=== PATIENT | female | born 1995 | race Hispanic/Latino ===

== ENCOUNTER 2022-05-25 20:06 | Emergency (ER) | payer MEDICAID, OTHER ==
[~2022-05-25] VITALS: Ht 152.4 cm; Wt 84.4 kg
[2022-05-25 20:57] LABS: APPEARANCE,URINE CLEAR (CLEAR); BILIRUBIN,URINE NEGATIVE (NEGATIVE); COLOR,URINE COLORLESS (YELLOW); GLUCOSE, URINE (UA) NEGATIVE (NEGATIVE); KETONES,URINE NEGATIVE (NEGATIVE); LEUKOCYTE ESTERASE ,URINE 250 Leu/uL (NEGATIVE); NITRATE,URINE NEGATIVE (NEGATIVE); OCCULT BLOOD,URINE NEGATIVE (NEGATIVE); PH,URINE 7.5 (5.0-8.0); PROTEIN,URINE NEGATIVE (NEGATIVE); UROBILINOGEN,URINE 0.2 mg/dL (0.2-1.0)
[2022-05-25 21:08] LABS: BACTERIA,URINE RARE /HPF (None Seen); RBC,URINE 0-1 /HPF (0-1); SQUAMOUS EPITHELIAL CELL,UR RARE /HPF (0-2); WBC,URINE 0-1 /HPF (0-1); YEAST,URINE BUDDING FEW /HPF (None Seen)
[2022-05-25 22:07] LABS: BASOPHILS % (AUTO) 0.2 % (0.0-5.0); HEMATOCRIT 34.6 % (36-48); LYMPHOCYTES % (AUTO) 20.8 % (21.0-51.0); MEAN CORPUSCULAR HGB CONC 33.2 g/dL (32.0-36.0); MEAN CORPUSCULAR VOLUME 87.4 fL (79-99); MONOCYTES % (AUTO) 5.6 % (3.0-13.0); NEUTROPHILS % (AUTO) 70.9 % (40.0-77.0); PLATELET COUNT (AUTO) 245 K/uL (130-400); RED BLOOD CELL COUNT(AUTO) 3.96 MIL/uL (4.00-5.50); RED CELL DISTRIBUTION WIDTH 13.2 % (11.0-15.5); WHITE BLOOD COUNT (AUTO) 8.2 K/uL (4.8-10.8)
[2022-05-25 22:20] LABS: CREATININE 0.7 mg/dL (0.5-1.5); POTASSIUM 3.4 mmol/L (3.5-5.1)
[2022-05-25 22:46] LABS: ALBUMIN 3.3 g/dL (3.5-5.0); TOTAL PROTEIN, SERUM 7.1 g/dL (6.0-8.3)
[2022-05-25 22:57] VITALS: BP 115/62
== END 2022-05-25 22:58 | disposition home or self-care (01) ==
LOC: EDH 20:06
DX: O20.9 Hemorrhage in early pregnancy, unspecified (principal); Z3A.14 14 weeks gestation of pregnancy
CPT/HCPCS: 36415; 76805; 80053; 81001; 81025; 84702; 85025; 87088

== ENCOUNTER 2024-04-22 13:57 | Emergency (ER) | payer MEDICAID ==
[~2024-04-22] VITALS: Ht 152.4 cm; Wt 95.7 kg
[2024-04-22 14:57] LABS: APPEARANCE,URINE CLOUDY (CLEAR); BILIRUBIN,URINE NEGATIVE (NEGATIVE); COLOR,URINE YELLOW (YELLOW); GLUCOSE, URINE (UA) NEGATIVE (NEGATIVE); KETONES,URINE 100 mg/dL (NEGATIVE); LEUKOCYTE ESTERASE ,URINE NEGATIVE Leu/uL (NEGATIVE); NITRATE,URINE NEGATIVE (NEGATIVE); OCCULT BLOOD,URINE SMALL (NEGATIVE); PH,URINE 5.5 (5.0-8.0); PROTEIN,URINE 10 mg/dL (NEGATIVE); UROBILINOGEN,URINE 0.2 mg/dL (0.2-1.0)
--- NOTE | 2024-04-22 14:57 | ERN ---
ED Note History of Present Illness Stated Complaint: NAUSEA,MULTIPLE COMPLAINTS Chief Complaint: Abdominal Pain Time Seen by MD: 14:08 Dictation: Patient is here with nausea vomiting for the last 3-4 days with diffuse abdominal cramping no fever no chills no change in urination. She states she is sexually active without control and might be . No primary care doctor and has not taken anything prior to arrival for the pain or vomiting Allergies: Coded Allergies: No Known Drug Allergies (Unverified Allergy, Unknown, 05/25/22) Home Meds Active Scripts Ondansetron (Ondansetron Odt) 4 Mg Tab.rapdis, 4 MG PO Q6HPRN PRN for nausea, #16 TAB 0 Refills Prov:ANAMARIA MCBRIDE POULTRY FARM MANAGER 04/22/24 Past Medical History Past Medical History: No Pertinent History Surgical History: None, LMP: Mar 20, 2024 RN Note Reviewed/Agreed w/PFSH: Yes Review of System Dictation CONSTITUTIONAL: Negative except for HPI HEAD/FACE: Negative except for HPI EENT: Negative except for HPI RESPIRATORY: Negative except for HPI GASTROINTESTINAL/ABDOMINAL: Negative except for HPI diffuse abdominal cramping with nausea vomiting 3-4 days GENITOURINARY: Negative except for HPI MUSCULOSKELETAL: Negative except for HPI INTEGUMENTARY: Negative except for HPI NEUROLOGICAL/PSYCH: Negative except for HPI HEMATOLOGIC/LYMPHATIC: Negative except for HPI All Systems Negative, Except as noted above. 13 point review of systems assessed and all negative except for above. Initial Vital Sign VS Vital Signs Date Time Temp Pulse Resp B/P (MAP) Pulse Ox O2 Delivery O2 Flow Rate FiO2 04/22/24 14:13 98.1 94 16 128/91 99 Room Air 0 04/22/24 17:08 21 Physical Exam Dictation Vital Signs reviewed General Appearance: Alert, oriented x 3, moderate acute distress, well developed, nourished. Obese Head and Face: non-traumatic. Eyes: PERRL, pink conjunctivas, eyelid no trauma, anterior chamber with arcus senilis. Ears: Pinnas intact and no signs of trauma or erythema ear canals clear and no discharge TM no erythema Nose: No discharge, no bleeding. Oropharynx: Mouth normal, tongue pink, pharynx clear,no erythema, tonsils no exudates, no abscesses noted, mucous memb [place] moist Neck: Supple, non-tender, no thyromegaly, no masses, no JVD, no bruits Breast:Deferred Chest:No tenderness, no crepitus, no paradoxical movement, no retractions Lungs:Clear, well-ventilated, symmetric, no rales, no wheezing, no rhonchi, no s tridor, good breath sounds bilaterally Heart: Regular rate, regular rhythm, no murmur, no gallops Vascular: no peripheral edema, Abdomen: Soft, positive bowel sounds, nondistended, no guarding, nontender, no rebound, no masses no hepatomegaly, no splenomegaly, no Nguyen's sign, no hernias. No focal tenderness Rectal: Deferred Genital: Deferred Neurological: Normal speech, motor function intact, sensory function intact Musculoskeletal: Neck nontender, full range of motion, back nontender, full range of motion, Extremities: nontender, full range of motion Skin: Color pink, dry, no turgor, no rash, no lacerations, no abrasions, no contusions. Lymphatic: Deferred Results (Laboratory/Radiology) Laboratory/Radiology Laboratory Tests Test 04/22/24 14:28 04/22/24 15:17 Urine Color YELLOW (YELLOW) Urine Appearance CLOUDY (CLEAR) H Urine pH 5.5 (5.0-8.0) Urine Specific [place] 1.023 (1.001-1.031) Urine Protein 10 mg/dL (NEGATIVE) H Urine Glucose (UA) NEGATIVE mg/dL (NEGATIVE) Urine Ketones 100 mg/dL (NEGATIVE) H Urine Occult Blood SMALL (NEGATIVE) H Urine Nitrate NEGATIVE (NEGATIVE) Urine Bilirubin NEGATIVE mg/dL (NEGATIVE) Urine Urobilinogen 0.2 mg/dL (0.2-1.0) Urine Leukocyte Esterase NEGATIVE [place]/uL Urine RBC 0-1 /HPF (0-1) Urine WBC 2-5 /HPF (0-1) H Urine Squamous Epithelial Cells MANY /HPF (0-2) Urine Bacteria None /HPF (None Seen) Urine HCG, Qualitative POSITIVE (NEGATIVE) H White Blood Count 8.0 K/uL (4.8-10.8) Red Blood Count 4.61 MIL/uL (4.00-5.50) Hemoglobin 12.2 g/dL (12.0-16.0) Hematocrit 39.5 % (36-48) Mean Corpuscular Volume 85.7 fL (79-99) Mean Corpuscular Hemoglobin 26.5 pg (27.0-33.0) L Mean Corpuscular Hemoglobin Concent 30.9 g/dL (32.0-36.0) L Red Cell Distribution Width 14.2 % (11.0-15.5) Platelet Count 350 K/uL (130-400) Mean Platelet Volume 10.5 fL (7.5-10.5) Immature Granulocyte % (Auto) 0.5 % (0-1) Neutrophils (%) (Auto) 75.4 % (40.0-77.0) Lymphocytes (%) (Auto) 19.1 % (21.0-51.0) L Monocytes (%) (Auto) 4.1 % (3.0-13.0) Eosinophils (%) (Auto) 0.5 % (0.0-8.0) Basophils (%) (Auto) 0.4 % (0.0-5.0) Neutrophils # (Auto) 6.0 K/uL (1.8-7.7) Lymphocytes # (Auto) 1.5 K/uL (1.0-4.8) Monocytes # (Auto) 0.3 K/uL (0.1-1.0) Eosinophils # (Auto) 0.04 K/uL (0.00-0.70) Basophils # (Auto) 0.03 K/uL (0.00-0.20) Absolute Immature Granulocyte (auto 0.04 K/uL (0-1) Nucleated Red Blood Cells 0.0 % (0.0-0.19) Red Blood Cell Morphology See comments Sodium Level 137 mmol/L (136-145) Potassium Level 4.5 mmol/L (3.5-5.1) Chloride Level 100 mmol/L (101-111) L Carbon Dioxide Level 25 mmol/L (21-32) Blood Urea Nitrogen 7 mg/dL (7-18) Creatinine 0.7 mg/dL (0.5-1.0) Glomerular Filtration Rate Calc 122 mL/min (>90) Random Glucose 88 mg/dL (70-105) Total Calcium 9.5 mg/dL (8.5-10.1) Lipase 24 U/L (16-77) Serum Test, Qualitative POSITIVE (NEGATIVE) H Labs Reviewed?: Yes ED Course ED Course Orders Procedure Category Date Status Time Urinalysis Profile LAB 04/22/24 Complete 14:26 ,Urine Test LAB 04/22/24 Complete 14:26 Cbc With Differential LAB 04/22/24 Complete 14:56 Lipase LAB 04/22/24 Complete 14:56 Basic Metabolic Panel LAB 04/22/24 Complete 14:56 Ondansetron Odt 4mg PHA 04/22/24 Complete Tab (Zofran 4mg Odt) 15:00 Testing, LAB 04/22/24 Complete Serum Hcg 15:12 Us Ob <14 Weeks US 04/22/24 Resulted 15:56 Current Medications Medications (Trade) Dose Ordered Sig/Sebastián Route PRN Reason Start Time Stop Time Status Last Admin Dose Admin Ondansetron HCl (zoFRAN 4MG ODT) 4 mg ONCE ONCE SL 04/22/24 15:00 04/22/24 15:01 DC 04/22/24 17:08 Vital Signs Date Time Temp Pulse Resp B/P (MAP) Pulse Ox O2 Delivery O2 Flow Rate FiO2 04/22/24 17:08 98.1 90 16 125/89 99 Room Air* 0 21 04/22/24 14:13 98.1 94 16 128/91 99 Room Air 0 1645 workup negative patient has a positive test. Ultrasound does not demonstrate an IUP at this time however she would be approximately five weeks four days Medical Decision Making MDM Medical discharge making basic labs urinalysis and HCG Labs negative except for hCG positive Ultrasound does not demonstrate IUP at this time however likely too early no sac seen DX & DISP Disposition: Discharge Departure Impression: Primary Impression: Pelvic pain during Condition: Stable Scripts Ondansetron (Ondansetron Odt) 4 Mg Tab.rapdis 4 MG PO Q6HPRN PRN for nausea, #16 TAB 0 Refills Prov: ANAMARIA MCBRIDE P[employer]LTRY FARM MANAGER 04/22/24 Additional Instructions: Follow-up with primary care provider in 1 to 2 days. Take medications as directed here in the emergency room. Okay to continue home medications unless otherwise discussed during your visit in the emergency room today. Return to your nearest emergency room if symptoms worsen or if there is no improvement. Call 911 if you need immediate assistance. Take Tylenolas needed and if no contraindications are present. Increase oral hydration. A wound culture or urine culture was ordered here in the emergency room department please follow-up with primary care provider and advise them to get repeat ports from our facility. If you had any Oscar wrap/splints that were applied here, please do not remove them until you see your primary care or specialty. Start vitamins/[id number]-agi-[id number] today and take daily with food. Tylenol only for pain. No [id number] medications, no tobacco, no alcohol until cleared by your rice field worker doctor Referrals: SELF,REFERRAL (PCP) Time of Disposition: 16:46 I have reviewed the case, and I agree with, Diagnosis and Plan I performed the substantive portion of the visit. I have reviewed and personally made and approve the management plan that is documented in the notes by myself or the KEON. I acknowledge full responsibility for the patient's management plan. ANAMARIA MCBRIDE NP Apr 22, 2024 14:57 FLORENCIO CEVALLOS MD Apr 22, 2024 18:32
[2024-04-22 14:59] LABS: ADD UA MICROSCOPIC YES
[2024-04-22 15:01] LABS: MUCUS,URINE RARE LPF (None Seen); RBC,URINE 0-1 /HPF (0-1); SQUAMOUS EPITHELIAL CELL,UR MANY /HPF (0-2)
[2024-04-22 15:43] LABS: HCG,QUALITATIVE URINE POSITIVE (NEGATIVE)
[2024-04-22 15:51] LABS: BASOPHILS # (AUTO) 0.03 K/uL (0.00-0.20); BASOPHILS % (AUTO) 0.4 % (0.0-5.0); EOSINOPHILS # (AUTO) 0.04 K/uL (0.00-0.70); EOSINOPHILS % (AUTO) 0.5 % (0.0-8.0); HEMATOCRIT 39.5 % (36-48); IMMATURE GRANULOCYTE ABSOLUTE 0.04 K/uL (0-1); LYMPHOCYTES # (AUTO) 1.5 K/uL (1.0-4.8); LYMPHOCYTES % (AUTO) 19.1 % (21.0-51.0); MEAN CORPUSCULAR HEMOGLOBIN 26.5 pg (27.0-33.0); MEAN CORPUSCULAR HGB CONC 30.9 g/dL (32.0-36.0); MEAN CORPUSCULAR VOLUME 85.7 fL (79-99); MONOCYTES # (AUTO) 0.3 K/uL (0.1-1.0); MONOCYTES % (AUTO) 4.1 % (3.0-13.0); NEUTROPHILS % (AUTO) 75.4 % (40.0-77.0); PLATELET COUNT (AUTO) 350 K/uL (130-400); RED BLOOD CELL COUNT(AUTO) 4.61 MIL/uL (4.00-5.50); RED CELL DISTRIBUTION WIDTH 14.2 % (11.0-15.5)
[2024-04-22 15:56] LABS: CREATININE 0.7 mg/dL (0.5-1.0); POTASSIUM 4.5 mmol/L (3.5-5.1)
--- NOTE | 2024-04-22 16:46 | HMCIMG ---
Exam Type: US OB <14 WEEKS Clinical Information: Abdominal cramping with nausea and vomiting approximately five weeks pregna Comparison: None FINDINGS: There is an intrauterine gestational sac. Gestational sac diameter is 1.04 cm , corresponds to 6 w 0 d. No embryonic pole or yolk sac seen at this time. The uterus is anteverted with normal shape. It measures 7.6 x 4.4 x 3.7 cm in its maximum length, anteroposterior and transverse dimensions. The myometrium is homogeneous and there is no evidence of focal or diffuse lesions. Both ovaries appear normal with normal flow on color and Spectral Doppler. The right ovary measures 1.9 x 1.3 x 2.2 cm and the left ovary measures 2.1 x 2.4 x 2 cm. Simple cyst lt ovary. No adnexal masses. No free fluid or collections. Urinary bladder appears normal. IMPRESSION: Intrauterine gestational sac, with diameter corresponding to a gestational age of 6w0d. No embryonic pole or yolk sac seen at this time. Consider short-term follow-up to confirm viability.
[2024-04-22] MEDS ORDERED: ONDA-243 PO (17:07)
[2024-04-22 17:08] VITALS: BP 125/89; PULSE 90; RESP 16; TEMP 98.1; O2SAT 99
[2024-04-22] MEDS: ondanSETRON ODT 4MG TAB SL ONE (17:08)
--- NOTE | 2024-04-22 17:08 | NUR ---
ASSUMED PT CARE AT THIS TIME.
== END 2024-04-22 17:17 | disposition home or self-care (01) ==
LOC: EDH 13:57
DX: O26.891 Other specified pregnancy related conditions, first trimester (principal); R10.2 Pelvic and perineal pain; Z3A.01 Less than 8 weeks gestation of pregnancy; Z79.899 Other long term (current) drug therapy
CPT/HCPCS: 36415; 76801; 80048; 81001; 81025; 83690; 84703; 85025; 99284

== ENCOUNTER 2024-04-25 10:03 | Emergency (ER) | payer MEDICAID ==
[~2024-04-25] VITALS: Ht 152.4 cm; Wt 95.3 kg
[~2024-04-25 10:03] MED LIST: ONDA-243 PO
--- NOTE | 2024-04-25 12:00 | ERN ---
General Chief Complaint: Abdominal Pain in Stated Complaint: MISCARRIAGE Time Seen by MD: 10:08 Time Seen by Midlevel: 10:08 Source: patient History of Present Illness Initial Comments Patient is a 28-year-old female presenting to the emergency department for evaluation of suprapubic abdominal cramping and vaginal bleeding. The patient reports being approximately six weeks . She was seen at our emergency department three days ago for the same symptoms. At that time she had an ultrasound performed which revealed an intrauterine gestation with no or yolk sac present. Today she noticed a large amount of bleeding with clots which prompted her to report to the ER for further evaluation. She reports being a A0. She has an appointment scheduled with her OBGYN next week. Allergies: Coded Allergies: No Known Drug Allergies (Unverified Allergy, Unknown, 05/25/22) Home Meds Active Scripts Ondansetron (Ondansetron Odt) 4 Mg Tab.rapdis, 4 MG PO Q6HPRN PRN for nausea, #16 TAB 0 Refills Prov:ANAMARIA MCBRIDE COURTESY VAN DRIVER 04/22/24 Past Medical History Past Medical History: No Pertinent History Past Surgical History: ROS Dictation CONSTITUTIONAL: Negative except for HPI HEAD/FACE: Negative except for HPI EENT: Negative except for HPI RESPIRATORY: Negative except for HPI GASTROINTESTINAL/ABDOMINAL: Negative except for HPI GENITOURINARY: Negative except for HPI MUSCULOSKELETAL: Negative except for HPI INTEGUMENTARY: Negative except for HPI NEUROLOGICAL/PSYCH: Negative except for HPI HEMATOLOGIC/LYMPHATIC: Negative except for HPI All Systems Negative, Except as noted above. 13 point review of systems assessed and all negative except for above. Physical Exam Physical Exam Dictation Vital Signs reviewed General Appearance: Alert, oriented x 3, no acute distress, well developed, nourished. Head and Face: non-traumatic. Eyes: PERRL, pink conjunctivas, eyelid no trauma, anterior chamber with arcus senilis. Ears: Pinnas intact and no signs of trauma or erythema ear canals clear and no discharge TM no erythema Nose: No discharge, no bleeding. Oropharynx: Mouth normal, tongue pink, pharynx clear,no erythema, tonsils no exudates, no abscesses noted, mucous membrane moist Neck: Supple, non-tender, no thyromegaly, no masses, no JVD, no bruits Breast:Deferred Chest:No tenderness, no crepitus, no paradoxical movement, no retractions Lungs:Clear, well-ventilated, symmetric, no rales, no wheezing, no rhonchi, no stridor, good breath sounds bilaterally Heart: Regular rate, regular rhythm, no murmur, no gallops Vascular: no peripheral edema, Abdomen: Soft, positive bowel sounds, nondistended, no guarding, nontender, no rebound, no masses no hepatomegaly, no splenomegaly, no Nguyen's sign, no hernias. Rectal: Deferred Genital: Deferred Neurological: Normal speech, motor function intact, sensory function intact Musculoskeletal: Neck nontender, full range of motion, back nontender, full range of motion, Extremities: nontender, full range of motion Skin: Color pink, dry, no turgor, no rash, no lacerations, no abrasions, no contusions. Lymphatic: Deferred Results Laboratory and Microbiology Lab and Micro Result Laboratory Tests Test 04/25/24 10:30 Human Chorionic Gonadotropin, Quant 34994 mIU/mL (0-5) H Labs Reviewed?: Yes MDM MDM: Patient is a 28-year-old female presenting to the emergency department for evaluation of suprapubic abdominal cramping and vaginal bleeding. The patient reports being approximately six weeks . She was seen at our emergency department three days ago for the same symptoms. At that time she had an ultrasound performed which revealed an intrauterine gestation with no or yolk sac present. Today she noticed a large amount of bleeding with clots which prompted her to report to the ER for further evaluation. She reports being a A0. She has an appointment scheduled with her OBGYN next week. On physical examination the patient is in no acute distress. Initial vital signs [place] [address]. The patient was seen in our ER three days ago but an hCG quant was not performed so am unable to compare this lab value. Pelvic ultrasound reveals an intrauterine gestational sac with diameter corresponding to a gestational age of six weeks and four days. There was no em bryonic pole or yolk sac seen at this time. This may be related to a blighted ovum. This was discussed with the patient. Patient has an appointment with her OBGYN tomorrow and will be following up. Differential diagnosis: Blighted ovum, threatened , miscarriage There are no social concerns with this patient. Prescription drug management Prescriptions will include: None Medical management and examination interpretation discussions were had by me with other qualified healthcare professionals as indicated for the patient's care. ED Course Orders Procedure Category Date Status Time Hcg,Quantitative LAB 04/25/24 Complete 10:16 Us Ob <14 Weeks US 04/25/24 Resulted 10:16 Acetaminophen 500mg PHA 04/25/24 Complete Tab (Tylenol 500mg T 13:00 Current Medications Medications (Trade) Dose Ordered Sig/Sebastián Route PRN Reason Start Time Stop Time Status Last Admin Dose Admin Acetaminophen (TYLenol 500MG TAB) 1,000 mg ONCE ONCE PO 04/25/24 13:00 04/25/24 12:50 DC 04/25/24 12:47 Vital Signs Date Time Temp Pulse Resp B/P (MAP) Pulse Ox O2 Delivery O2 Flow Rate FiO2 04/25/24 12:49 99.0 92 20 125/76 100 Room Air* 0 21 04/25/24 10:17 99.0 113 20 125/76 100 Room Air* 0 21 04/25/24 10:09 99.0 113 20 125/76 100 Room Air [address] [address] IMAGING REPORT Signed PATIENT: PANCHO ESTRADA MR#: [id number] : 1995 SEX: F AGE: 28 LOCATION: [facility] ORDER 1017 STATUS: REG ER REPORT#: [id number] SERVICE 1016 REASON: vaginal bleeding during ORDERING PHYSICIAN: ALINE OLSON PROCEDURE: OB <14 - US OB <14 WEEKS Exam Type: US OB <14 WEEKS Clinical Information: vaginal bleeding during Comparison: None FINDINGS: There is an intrauterine gestational sac. Gestational sac diameter is 1.4 cm , corresponds to 6 weeks 4 days. No embryonic pole or yolk sac seen at this time. The uterus is anteverted with normal shape. It measures 8.2 x 5.1 x 6.9 cm in its maximum length, anteroposterior and transverse dimensions. The myometrium is homogeneous and there is no evidence of focal or diffuse lesions. Both ovaries appear normal with normal flow on color and Spectral Doppler. The right ovary measures 3.3 x 2.4 x 3.2 cm and the left ovary measures 2.9 x 2 x 2.3 cm. No adnexal masses. No free fluid or collections. Urinary bladder appears normal. IMPRESSION: Intrauterine gestational sac, with diameter corresponding to a gestational age of 6 weeks 4 days. No embryonic pole or yolk sac seen at this time. Consider short-term follow-up to confirm viability. DICTATED BY: PARRISH LEONARD MD DATE: 04/25/24 1224 ELECTRONICALLY SIGNED BY: PARRISH LEONARD MD DATE: 04/25/24 1228 DX & DISP Disposition: Discharge Departure Impression: Primary Impression: Vaginal bleeding during Condition: Stable Additional Instructions: Your blood [place] [address] Your pelvic ultrasound reveals an intrauterine gestational sac with diameter corresponding to a gestational age of six weeks and four days. However, there was no embryonic pole or yolk sac seen at this time. This may be consistent with a bloating ovum. I recommend a short-term follow up to confirm viability. You already have an appointment scheduled with your OBGYN tomorrow please keep the appointment. Return to the emergency department if you develop any new or worsening symptoms. You may take Tylenol for pain as needed. Referrals: CEM MATAMOROS JR, MD (PCP) Time of Disposition: 12:40 I have reviewed the case, and I agree with, Diagnosis and Plan I performed the substantive portion of the visit. I have reviewed and personally made and approve the management plan that is documented in the note by myself or the KEON. I acknowledge for responsibility for the patient's management plan. ALINE OLSON Apr 25, 2024 12:00 BERKLEY ARMAS DO Apr 25, 2024 18:46
--- NOTE | 2024-04-25 12:28 | HMCIMG ---
Exam Type: US OB <14 WEEKS Clinical Information: vaginal bleeding during Comparison: None FINDINGS: There is an intrauterine gestational sac. Gestational sac diameter is 1.4 cm , corresponds to 6 weeks 4 days. No embryonic pole or yolk sac seen at this time. The uterus is anteverted with normal shape. It measures 8.2 x 5.1 x 6.9 cm in its maximum length, anteroposterior and transverse dimensions. The myometrium is homogeneous and there is no evidence of focal or diffuse lesions. Both ovaries appear normal with normal flow on color and Spectral Doppler. The right ovary measures 3.3 x 2.4 x 3.2 cm and the left ovary measures 2.9 x 2 x 2.3 cm. No adnexal masses. No free fluid or collections. Urinary bladder appears normal. IMPRESSION: Intrauterine gestational sac, with diameter corresponding to a gestational age of 6 weeks 4 days. No embryonic pole or yolk sac seen at this time. Consider short-term follow-up to confirm viability.
[2024-04-25] MEDS: acetaMINOPHEN 500 MG TABLET PO ONE (12:47)
[2024-04-25 12:49] VITALS: BP 125/76; PULSE 92; RESP 20; TEMP 99; O2SAT 100
== END 2024-04-25 12:50 | disposition home or self-care (01) ==
LOC: EDH 10:03
DX: O20.9 Hemorrhage in early pregnancy, unspecified (principal); O26.891 Other specified pregnancy related conditions, first trimester; R10.2 Pelvic and perineal pain; Z3A.01 Less than 8 weeks gestation of pregnancy
CPT/HCPCS: 36415; 76801; 84702; 99284